=== PATIENT | female | born 1985 | race African-American/Black ===

== ENCOUNTER 2019-01-29 17:55 | Inpatient (IN) | payer SELFPAY ==
[~2019-01-29] VITALS: Ht 167.6 cm; Wt 78.0 kg
--- NOTE | 2019-01-29 18:06 | NUR ---
PT BIB SELF C/O Palpitations "was in a pool libertarian earlier around 4pm had a shot of liquid 30min later started having palpitations", PT IS AAOX4, NOT IN RESPIRATORY DISTRESS, ELEVATED HEART RATE 135BPM, HOOKED TO MONITOR, KEPT RESTED AND COMFORTABLE, WILL CONTINUE TO MONITOR.
--- NOTE | 2019-01-29 18:15 | NUR ---
IV LINE ESTABLISHED, LABS DRAWNED AND SENT TO LAB.
--- NOTE | 2019-01-29 18:42 | NUR ---
ZOILA GED TEACHER AT BEDSIDE FOR EVAL.
[2019-01-29] MEDS ORDERED: METOPROLOL TARTRATE INJ 5 MG/5 ML AMPUL IV ONE (19:00)
[2019-01-29] MEDS ORDERED: IV NS 0.9% 1,000 ML BAG IV ONE (19:00)
[2019-01-29 19:03] LABS: BASOPHILS # (AUTO) 0.1 /CMM (0.0-0.2); BASOPHILS % (AUTO) 1.4 % (0.0-2.0); EOSINOPHILS % (AUTO) 1.2 % (0.0-6.0); HEMATOCRIT 42 % (33-45); HEMOGLOBIN 13.8 g/dL (11.5-14.8); LYMPHOCYTES # (AUTO) 2.7 /CMM (0.8-4.8); LYMPHOCYTES % (AUTO) 33.1 % (20.0-44.0); MEAN CORPUSCULAR HGB CONC 33 g/dl (31.0-36.0); MEAN CORPUSCULAR VOLUME 89 fL (82-100); MONOCYTES # (AUTO) 0.5 /CMM (0.1-1.30); MONOCYTES % (AUTO) 5.7 % (2.0-12.0); NEUTROPHILS # (AUTO) 4.9 /CMM (1.8-8.9); NEUTROPHILS % (AUTO) 58.6 % (43.0-81.0); PLATELET COUNT (AUTO) 310 /CMM (150-450); RED BLOOD CELL COUNT(AUTO) 4.71 MIL/uL (4.0-5.2); WHITE BLOOD COUNT (AUTO) 8.3 K/uL (4.3-11.0)
[2019-01-29] MEDS ORDERED: METOPROLOL TARTRATE INJ 5 MG/5 ML AMPUL ONE (19:05)
--- NOTE | 2019-01-29 19:06 | NUR ---
FITTER UP AT BEDSIDE FOR XRAY.
[2019-01-29 19:16] LABS: CALCIUM, SERUM 9.2 mg/dL (8.5-10.1); CARBON DIOXIDE 25 mmol/L (21-32); CHLORIDE 104 mmol/L (98-107); GLUCOSE 120 mg/dL (74-106); POTASSIUM 3.3 mmol/L (3.5-5.1); SODIUM SERUM 139 mmol/L (136-145); UREA NITROGEN, BLOOD 12 mg/dL (7-18)
[2019-01-29 19:21] LABS: ALANINE AMINOTRANSFERASE 32 U/L (12-78); ALKALINE PHOSPHATASE 70 U/L (46-116); ASPARTATE AMINOTRANSFERASE 16 U/L (15-37); BILIRUBIN,TOTAL 0.2 mg/dL (0.2-1.0); TOTAL PROTEIN, SERUM 7.6 g/dL (6.4-8.2)
--- NOTE | 2019-01-29 19:22 | NUR ---
RECEIVED REPORT FROM ROLY COTTRELL FOR MARYANNE
--- NOTE | 2019-01-29 19:22 | NUR ---
REPORT GIVEN TO RONIT PEREZ FOR COC. TRAN FOR URINALYSIS.
--- NOTE | 2019-01-29 19:22 | NUR ---
STILL FOR DRUG SCREENING.
--- NOTE | 2019-01-29 21:10 | NUR ---
PT RESTING COMFORTABLY IN BED. VITAL SIGNS STABLE. PER PT REQUEST, RECEIVED SANDWICH AND JUICE. NO ACUTE DISTRESS NOTED AT THIS TIME. FRIEND AT BEDSIDE. PT STILL ON CONTINUOUS ORTHOPEDIC RN AND PULSE OX, WILL CONTINUE TO MONITOR
--- NOTE | 2019-01-29 21:22 | NUR ---
CALLED [employer] INSPECTOR [employer]OT FORGINGS, , TRANSFERRED CALL TO [facility]IL AND GAS SUPERINTENDENT
--- NOTE | 2019-01-29 21:35 | NUR ---
[facility] PAGED, LYN STARKEY CHEF'S ASSISTANT
--- NOTE | 2019-01-29 21:37 | NUR ---
CALLED NURSING SUP. FOR TELE BED
[2019-01-29] MEDS ORDERED: IV NS 0.9% 1,000 ML IV PRN (22:02)
[2019-01-29] MEDS ORDERED: Magnesium 1GM/D5W 100ML PREMIX 100 ML IV ONE (22:03)
--- NOTE | 2019-01-29 22:12 | NUR ---
TELE 308-2
[2019-01-29] MEDS: Magnesium 1GM/D5W 100ML PREMIX 100 ML IV SCH ×2 (22:15→23:26)
[2019-01-29 22:28] LABS: APPEARANCE,URINE CLEAR (CLEAR); BILIRUBIN,URINE NEGATIVE (NEGATIVE); BLOOD, URINE NEGATIVE Ery/uL (NEGATIVE); COLOR,URINE YELLOW (YELLOW); KETONES,URINE NEGATIVE (NEGATIVE); LEUKOCYTE ESTERASE ,URINE NEGATIVE (NEGATIVE); NITRITE, URINE NEGATIVE (NEGATIVE); PROTEIN,URINE NEGATIVE (NEGATIVE); UGLUCOSE NEGATIVE (NEGATIVE); UROBILINOGEN,URINE 0.2 EU/dL (0.2)
[2019-01-29] MEDS ORDERED: MAGNESIUM HYDROXIDE 30 ML UDC PO PRN (22:30)
[2019-01-29] MEDS ORDERED: ONDANSETRON HCL/PF 4 MG/2 ML VIAL IVP PRN (22:30)
[2019-01-29] MEDS ORDERED: Z GUARD REMEDY 2 OZ OINT TP PRN (22:30)
[2019-01-29] MEDS ORDERED: ACETAMINOPHEN 325 MG TABLET PO PRN (22:30)
[2019-01-29] MEDS ORDERED: MAG HYDROX/AL HYDROX/SIMETH 30 ML UDC PO PRN (22:30)
--- NOTE | 2019-01-29 22:32 | NUR ---
GAVE REPORT TO JANN COTTRELL FOR MARYANNE
--- NOTE | 2019-01-29 23:08 | NUR ---
TRANSFERRED PT PER [facility]
[2019-01-29 23:10] VITALS: BP 124/68
--- NOTE | 2019-01-29 23:10 | NUR ---
IMPREGNATING HELPER ADMITTING OPENING NOTES RECEIVED PATIENT FROM ER VIA [facility], SAFELY TRANSFERRED TO BED, AMBULATORY STEADY, AWAKE ALERT AND ORIENTED X 4, RESPIRATIONS EVEN AND UNLABORED WITH EQUAL RISE AND FALL OF CHEST, DENIES ANY PAIN OR DISCOMFORT AT THIS TIME,PLACE ON [address] WITH PVC. IV SITE TO RIGHT WRIST #18G INTACT AND PATENT, NO REDNESS, NO INFILTRATION PRESENT, CURRENTLY MAGNESIUM IS RUNNING, IVF HUNG ORDERED, ROSMERY MADE AWARE OF POTASSIUM LEVEL OF 3.3L , NEW ORDER FOR 20MEQ ONCE, PATIENT ALSO INSISTING TO EAT, ROSMERY MADE AWARE NEW ORDER FOR REGULAR DIET. ASKED PATIENT IS SHE HAS ANY WOUNDS OR SKIN ISSUES, STATES " NO".BELONGINGS LIST DONE, VISITOR AT BEDSIDE TOOK JOE BEJARANO HOME, PATIENT AGREED. ALL NEEDS ATTENDED AT THIS TIME, WILL CONTINUE TO MONITOR AND ADDRESS NEEDS.
[2019-01-29 23:30] VITALS: BP 124/68
[2019-01-29] MEDS ORDERED: POTASSIUM CHLORIDE 20 MEQ TAB.PRT.SR PO ONE (23:30)
[2019-01-30 04:00] VITALS: BP 132/68
[2019-01-30] MEDS ORDERED: NICOTINE PATCH (7MG) 7 MG PATCH.TD24 TD PRN (04:00)
[2019-01-30 04:06] VITALS: BP 132/68
--- NOTE | 2019-01-30 06:25 | NUR ---
RONIT MS NOTES PATIENT IN BED, AWAKE ALERT AND ORIENTED X4, RESPIRATIONS EVEN AND UNLABORED WITH EQUAL RISE AND FALL OF CHEST, DENIES ANY PAIN OR DISCOMFORT AT THIS TIME, IV SITE TO RIGHT WRIST #18G INTACT AND PATENT, IVF RUNNING ORDERED, ALL NEEDS ATTENDED AT THIS TIME, NO CHANGE FROM ADMISSION, REMAINS COMFORTABLE WILL CONTINUE TO MONITOR AND ENDORSE TO NEXT SHIFT. Addendum: 01/30/19 at 0634 by JANN JEFFRIES RN CLOSING NOTES Addendum: 01/30/19 at 0635 by JANN JEFFRIES RN ON PIG IRON LOADER HEART RATE 74 TITO
[2019-01-30 06:34] LABS: BASOPHILS # (AUTO) 0.1 /CMM (0.0-0.2); BASOPHILS % (AUTO) 0.7 % (0.0-2.0); HEMATOCRIT 40 % (33-45); HEMOGLOBIN 13.3 g/dL (11.5-14.8); LYMPHOCYTES # (AUTO) 4.1 /CMM (0.8-4.8); MEAN CORPUSCULAR HGB CONC 33 g/dl (31.0-36.0); MEAN CORPUSCULAR VOLUME 89 fL (82-100); MONOCYTES # (AUTO) 0.6 /CMM (0.1-1.30); MONOCYTES % (AUTO) 5.6 % (2.0-12.0); NEUTROPHILS # (AUTO) 5.3 /CMM (1.8-8.9); NEUTROPHILS % (AUTO) 51.7 % (43.0-81.0); PLATELET COUNT (AUTO) 274 /CMM (150-450); RED BLOOD CELL COUNT(AUTO) 4.53 MIL/uL (4.0-5.2); WHITE BLOOD COUNT (AUTO) 10.3 K/uL (4.3-11.0)
[2019-01-30 06:41] LABS: CALCIUM, SERUM 8.6 mg/dL (8.5-10.1); CREATININE 0.8 mg/dL (0.6-1.3); MAGNESIUM 2.3 mg/dL (1.8-2.4); PHOSPHORUS 3.9 mg/dL (2.5-4.9); POTASSIUM 4.2 mmol/L (3.5-5.1)
[2019-01-30 06:42] LABS: THYROID STIMULATING HORMONE 1.052 uIU/mL (0.358-3.74)
[2019-01-30 08:00] VITALS: BP 123/70
[2019-01-30] MEDS ORDERED: PANTOPRAZOLE 40 MG VIAL IV SCH (09:00)
--- NOTE | 2019-01-30 13:00 | NUR ---
MS foot piece assembler Notes Patient alert and oriented x4, able to make needs known. No complaints of pain at this time. Respirations even and unlabored on room air, no acute distress noted. Peripheral IV to the write wrist 18 gauge removed with catheter tip intact. No redness, swelling or bleeding of the site noted. Patient tolerating oral fluids and foods. Ambulates with steady gait, vital signs stable. Patient discharged with all personal belongings including clothing and valuables as noted on belongings form, verified with signature.Patient is living AMA even she was told that MD will d/c her today after ECO, wish was done. Patient refused d/c instructions. ID band removed from patient. Accompanied by girlfriend. Patient left by private ride. AMA form sighed and placed in the chart
== END 2019-01-30 14:00 | disposition left against medical advice (07) | DRG 918 ==
LOC: ER 18:05 → TELE 22:27 → MED 01-30 13:47
PROVIDERS: ADMIT Registered Nurse; ATTEND Internal Medicine
DX: T40.7X1A Poisoning by cannabis (derivatives), accidental (unintentional), initial encounter (principal); I49.3 Ventricular premature depolarization; E66.9 Obesity, unspecified; E83.42 Hypomagnesemia; E87.6 Hypokalemia; F17.210 Nicotine dependence, cigarettes, uncomplicated; Y92.099 Unspecified place in other non-institutional residence as the place of occurrence of the external cause; Z68.27 Body mass index [BMI] 27.0-27.9, adult; F32.9 Major depressive disorder, single episode, unspecified
CPT/HCPCS: 36415; 71045-TC; 80048-TC; 80061-TC; 80076-TC; 80305; 81000-TC; 83735-TC; 84100-TC; 84443-TC; 84484-TC; 84702-TC; 85025-TC; 87081-TC; 93307-TC; G0378; J3475; J3490; J7030